=== PATIENT | male | born 2000 | race Caucasian/White ===

== ENCOUNTER 2024-01-12 08:52 | Emergency (ER) | payer BC ==
[~2024-01-12] VITALS: Ht 185.4 cm; Wt 75.9 kg
[2024-01-12 08:57] VITALS: BP 116/77; PULSE 89; RESP 14; TEMP 98.6; O2SAT 97
--- NOTE | 2024-01-12 09:12 | NUR ---
ASSUMED PATIENT CARE, NURSING ASSESSMENT COMPLETED.
[2024-01-12] MEDS: MECLIZINE 25 MG TAB PO ONE (09:19)
[2024-01-12] MEDS ORDERED: MECL-303 PO (09:22)
[2024-01-12] MEDS: NACL 0.9% 1,000 ML IV ONE (09:32)
--- NOTE | 2024-01-12 09:36 | NUR ---
TO CT VIA WHEELCHAIR.
[2024-01-12 10:35] VITALS: BP 121/75; PULSE 89; RESP 14; TEMP 98.6; O2SAT 97
== END 2024-01-12 10:36 | disposition home or self-care (01) ==
LOC: MED 08:52
DX: H81.13 Benign paroxysmal vertigo, bilateral (principal); Z79.899 Other long term (current) drug therapy
CPT/HCPCS: 70496; 70498; 96360; 99285; J7030; J8597; Q9967